=== PATIENT | female | born 1970 | race American Indian/Alaskan Native ===

== ENCOUNTER 2016-07-21 00:55 | Emergency (ER) | payer MEDICAID ==
[2016-07-21] MEDS ORDERED: NACL 0.9% 1000 ML 1,000 ML IV ONE (07:13)
[2016-07-21] MEDS ORDERED: VALIUM IV ONE (07:13)
--- NOTE | 2016-07-21 07:34 | Emergency Department Report ---
HPI - General Chief Complaint: Pain General Time Seen by Provider: 07/21/16 06:58 - HPI HPI: This is a 45-year-old Afro[place] female who presents to the emergency department with the complaint of waking up at 12:30 AM this morning with pain to the hips, neck, back with muscle spasms. At the time the patient also said she was having trouble speaking due to the spasms. Patient says she is feeling much better and everything is resolved except for she continues to have some type of neck spasm and tremor when she is sitting upright. She says she has a history of this in the past. She has a history of cervical stenosis and bulging disks at 3 levels and says this is the result. She did not take anything for symptoms prior to presentation. She says that she has previously seen a neurologist and primary care doctor in [place] and now has moved back to [place]. She sees a Dr cassius encarnacion for primary care. She goes through [facility] and therefore does not currently have any neurologist or neurosurgeon but is being set up for . Patient says she really started a new medication for cholesterol, Lopid, and wonders if this could be the cause. She also has a history of non-insulin dependent diabetes and hyperthyroidism. No recent travel or sick contacts at home. She denies any headache, vision change, numbness or paresthesias, problems with bowel or bladder. ED Past Medical Hx - Past Medical History Previous Medical History?: Yes Hx Hypertension: Yes (diet-controlled) Hx Diabetes: Yes (metformin twice a day 500 mg) Hx Asthma: Yes (albuterol inhaler and Advair twice a day) Additional medical history: CERVICAL STENOSIS AND BULGING DISC: Flexeril and Indocin. HYPERTHYROID: Thyroxine 150 daily. HIGH CHOLESTEROL: Diet-controlled - Surgical History Past Surgical History?: Yes Hx Cholecystectomy: Yes Additional Surgical History: D & C. CYST REMOVED FROM URETHRA - Social History Smoking Status: Never Smoker Substance Use Type: Non Opiate Pain, Prescribed - Medications Home Medications: Home Medications Medication Instructions Recorded Confirmed Last Taken Type Cyclobenzaprine [Flexeril 10mg] 10 mg PO BID #14 tablet 11/10/14 Unknown Rx Diazepam Tab [Valium] 5 mg PO TID PRN #14 tablet 07/21/16 Unknown Rx ED Review of Systems ROS: Stated complaint: BACK PAIN Other details as noted in HPI Constitutional: denies: chills, fever Eyes: denies: eye pain, eye discharge, vision change ENT: denies: ear pain, throat pain Respiratory: denies: cough, shortness of breath, wheezing Cardiovascular: denies: chest pain, palpitations Gastrointestinal: denies: abdominal pain, nausea, diarrhea Genitourinary: denies: urgency, dysuria, discharge Musculoskeletal: back pain, arthralgia, myalgia. denies: joint swelling Skin: denies: rash, lesions Neurological: denies: headache, numbness, paresthesias Physical Exam - Physical Exam Vital Signs: Vital Signs 07/21/16 01:49 Temperature 99.2 F Pulse Rate 109 H Respiratory 18 Rate Blood Pressure 145/82 Blood Pressure 145/82 [Left] O2 Sat by Pulse 100 Oximetry Physical Exam: GENERAL: The patient is well-developed well-nourished. HEENT: Normocephalic. Atraumatic. Extraocular motions are intact. Patient has moist mucous membranes. Pupils equal reactive to light bilaterally. NECK: Supple. Trachea is midline. CHEST/LUNGS: Clear to auscultation. There is no respiratory distress noted. HEART/CARDIOVASCULAR: Regular. There is no tachycardia. There is no gallop rub or murmur. ABDOMEN: Abdomen is soft, nontender. Patient has normal bowel sounds. There is no abdominal distention. SKIN: There is no rash. There is no edema. There is no diaphoresis. NEURO: The patient is awake, alert, and oriented. The patient is cooperative. The patient has no motor or sensory neurologic deficits. The patient has normal speech and gait. Cranial nerves II through XII grossly intact. When the patient sits up she has this intermittent tremor or spasm of the head and neck that appears as if she is doing a slow nod. No pronator drift or dysmetria. MUSCULOSKELETAL: There is no tenderness or deformity. There is no limitation range of motion. There is no evidence of acute injury. Muscle strength 5 out of 5 for upper and lower extremity bilaterally. ED Course Vital Signs 07/21/16 01:49 Temperature 99.2 F Pulse Rate 109 H Respiratory 18 Rate Blood Pressure 145/82 Blood Pressure 145/82 [Left] O2 Sat by Pulse 100 Oximetry ED Medical Decision Making - Lab Data Result diagrams: 07/21/16 07:29 07/21/16 07:29 - Radiology Data Radiology results: report reviewed CT of the head does not show any acute process including no hemorrhage, mass, shift, diffuse edema or skull fracture. - Medical Decision Making 45-year-old female presents with acute spasms and some tremor that began rest after midnight. They already greatly improved prior to the patient getting back to the main emergency department. She was given IV fluid resuscitation and some Valium for muscle relaxation. Labs were checked and there is no signs of infection, electrolyte abnormalities, renal insufficiency, glucose abnormalities and the patient has normal thyroid function. Patient was reevaluated multiple times and says she is feeling much better. The head and neck tremor/spasm is greatly improved and almost resolved. Patient was seen ambulatory in the emergency department and appears stable while doing so. She has good follow-up with primary care. She will be given a referral for a local neurologist and has been encouraged to find a referral for a orthopedic spinal surgeon or neurosurgeon regarding her spinal stenosis. She does not have any numbness or paresthesias, problems with bowel or bladder. She will return immediately with any worsening of her symptoms or any acute distress. - Differential Diagnosis muscle spasms, Parkinson's, CVA, electrolyte abnormalities Critical Care Time: No Critical care attestation.: If time is entered above; I have spent that time in minutes in the direct care of this critically ill patient, excluding procedure time. ED Disposition Clinical Impression: Muscle spasm, Tremor, History of spinal stenosis Disposition: DISCHARGED TO HOME OR SELFCARE Is pt being admited?: No Does the pt Need Aspirin: No Condition: Stable Instructions: Muscle Spasm (ED) Additional Instructions: Please follow-up with your primary care doctor in the next few days without fail. I've also given you a local referral for a neurologist, Dr. Tena. You may need to see a orthopedic spinal physician or a neurosurgeon regarding your history of cervical spinal stenosis. Return to the emergency department with any worsening of your symptoms, slurred speech, vision change, problems with movement, chest pain, or any acute distress. You've been prescribed a medication that is sedating. Therefore this medication cannot be mixed with alcohol, or taken prior to driving, working, or being responsible for children. Prescriptions: Diazepam Tab [Valium] 5 mg PO TID PRN #14 tablet PRN Reason: Spasms Referrals: PRIMARY CARE, [Primary Care Provider] - 3-5 Days MADI TENA MD [Staff Physician] - 3-5 Days Time of Disposition: 09:54
[2016-07-21 08:12] LABS: Anion Gap 18 mmol/L; Blood Urea Nitrogen 12 mg/dL (7-17); Calcium 9.1 mg/dL (8.4-10.2); Carbon Dioxide 23 mmol/L (22-30); Glucose 95 mg/dL (65-100); Potassium 3.9 mmol/L (3.6-5.0); Sodium 139 mmol/L (137-145)
[2016-07-21 08:28] LABS: Basophils % (Auto) 0.8 % (0.0-1.8); Eosinophils % (Auto) 1.6 % (0.0-4.3); Hematocrit 35.9 % (30.3-42.9); Hemoglobin 11.4 gm/dl (10.1-14.3); Mean Corpuscular HGB Conc 32 % (30-34); Mean Corpuscular Volume 81 fl (79-97); Platelet Count 283 K/mm3 (140-440); Red Blood Count 4.41 M/mm3 (3.65-5.03); White Blood Count 8.4 K/mm3 (4.5-11.0)
[2016-07-21 08:31] LABS: Mean Corpuscular Hemoglobin 26 pg (28-32)
--- NOTE | 2016-07-21 09:44 | Cat Scan Report ---
CT scan of head without contrast: History: Spasms, tremors. Findings: Ventricles are normal in size and midline in location. No evidence of acute ischemia or hemorrhage. No extra-axial fluid collection. Normal brainstem and cerebellum. Normal sinuses and mastoid air cells. Impression: No acute intracranial abnormality.
[2016-07-21 09:57] VITALS: BP 130/72
== END 2016-07-21 10:10 | disposition home or self-care (01) ==
LOC: ED 00:55
DX: M62.838 Other muscle spasm (principal); R25.1 Tremor, unspecified; M48.00 Spinal stenosis, site unspecified; I10 Essential (primary) hypertension; E11.9 Type 2 diabetes mellitus without complications; J45.909 Unspecified asthma, uncomplicated; E78.00 Pure hypercholesterolemia, unspecified; E05.90 Thyrotoxicosis, unspecified without thyrotoxic crisis or storm; Z90.49 Acquired absence of other specified parts of digestive tract
CPT/HCPCS: 36415; 70450; 80048; 84443; 84703; 85025; 96361; 96374; 99284; J3360; J7030

== ENCOUNTER 2016-12-06 16:45 | Emergency (ER) | payer MEDICAID ==
[2016-12-06 17:31] VITALS: BP 125/82
[2016-12-06 18:35] LABS: Urine Drugs of Abuse Note Disclamer
[2016-12-06 18:44] LABS: Basophils % (Auto) 1.4 % (0.0-1.8); Eosinophils % (Auto) 2.9 % (0.0-4.3); Hematocrit 33.7 % (30.3-42.9); Hemoglobin 10.7 gm/dl (10.1-14.3); Mean Corpuscular HGB Conc 32 % (30-34); Mean Corpuscular Volume 81 fl (79-97); Platelet Count 288 K/mm3 (140-440); Red Blood Count 4.19 M/mm3 (3.65-5.03); Red Cell Distribution Width 16.5 % (13.2-15.2); White Blood Count 7.4 K/mm3 (4.5-11.0)
[2016-12-06 18:46] LABS: Mean Corpuscular Hemoglobin 26 pg (28-32)
[2016-12-06 18:55] LABS: Bilirubin,Urine NEG (Negative); Blood,Urine LG (Negative); Ketones,Urine NEG (Negative); Leukocyte Esterase,Urine MOD (Negative); Mucus,Urine FEW /HPF; Nitrite,Urine NEG (Negative); Urobilinogen,Urine < 2.0 mg/dL (<2.0)
[2016-12-06 18:56] LABS: RBC,Urine > 182.0 /HPF (0.0-6.0)
[2016-12-06 19:00] LABS: Anion Gap 18 mmol/L; BUN/Creatinine Ratio 21.66; Blood Urea Nitrogen 13 mg/dL (7-17); Calcium 8.8 mg/dL (8.4-10.2); Carbon Dioxide 22 mmol/L (22-30); Chloride 105.8 mmol/L (98-107); Glucose 111 mg/dL (65-100); Potassium 3.7 mmol/L (3.6-5.0); Sodium 142 mmol/L (137-145)
[2016-12-06] MEDS ORDERED: ATIVAN IV ONE (20:42)
--- NOTE | 2016-12-06 20:49 | Emergency Department Report ---
HPI - General Chief Complaint: Anxiety Time Seen by Provider: 12/06/16 20:29 - HPI HPI: Room 16 The patient is a 45-year-old female presenting with a chief complaint of "stress -induced seizure." Family states the patient has a history of "stress-induced seizures." Family states at about 16:00 the patient developed spasms, couldn't walk, her arms and legs stiffened. Family say she has a history of the same since July was diagnosed with "stress-induced seizures." Patient denies being on any medication for the seizures. Patient originally felt expressed that she cannot speak however the patient reportedly told staff upon arrival of the "I need more painful, seizures." And during my interview the patient interjected while I was questioning the patient's daughter and screamed "tell him about what happened today!" The patient reportedly had pseudoseizure activity with EMS and in triage Location: Mental state Duration: [see above] Quality: Anxiety Severity: Moderate Modifying factors: [see above] Context: [see above] Mode of transportation: [not driving] ED Past Medical Hx - Past Medical History Hx Hypertension: Yes (diet-controlled) Hx Diabetes: Yes (metformin twice a day 500 mg) Hx Asthma: Yes (albuterol inhaler and Advair twice a day) Additional medical history: CERVICAL STENOSIS AND BULGING DISC: Flexeril and Indocin. HYPERTHYROID: Thyroxine 150 daily. HIGH CHOLESTEROL: Diet-controlled - Surgical History Hx Cholecystectomy: Yes Additional Surgical History: D & C. CYST REMOVED FROM URETHRA - Family History Family history: no significant - Social History Smoking Status: Never Smoker Substance Use Type: Non Opiate Pain, Prescribed - Medications Home Medications: Home Medications Medication Instructions Recorded Confirmed Last Taken Type Cyclobenzaprine [Flexeril 10mg] 10 mg PO BID #14 tablet 11/10/14 Unknown Rx Diazepam Tab [Valium] 5 mg PO TID PRN #14 tablet 07/21/16 Unknown Rx Sulfamethoxazole/Trimethoprim 1 each PO BID #14 tablet 12/06/16 Unknown Rx [Bactrim DS TAB] hydrOXYzine PAMOATE [Vistaril] 50 mg PO Q6HR PRN #10 capsule 12/06/16 Unknown Rx ED Review of Systems ROS: Stated complaint: SEIZURE Other details as noted in HPI Comment: All other systems reviewed and negative Constitutional: denies: chills, fever Eyes: denies: eye pain, eye discharge, vision change ENT: denies: ear pain, throat pain Respiratory: denies: cough, shortness of breath, wheezing Cardiovascular: denies: chest pain, palpitations Endocrine: no symptoms reported Gastrointestinal: denies: abdominal pain, nausea, diarrhea Genitourinary: denies: urgency, dysuria, discharge Musculoskeletal: myalgia Skin: denies: rash, lesions Psychiatric: anxiety Hematological/Lymphatic: denies: easy bleeding, easy bruising Physical Exam - Physical Exam Vital Signs: Vital Signs 12/06/16 17:26 Temperature 99 F Pulse Rate 80 Respiratory 16 Rate Blood Pressure 125/82 O2 Sat by Pulse 99 Oximetry Physical Exam: GENERAL: The patient is well-developed well-nourished female lying on stretcher not appearing to be in acute distress. [] HEENT: Normocephalic. Atraumatic. Extraocular motions are intact. Patient has moist mucous membranes. NECK: Supple. No meningitic signs are noted. There is no adenopathy noted. CHEST/LUNGS: Clear to auscultation. There is no respiratory distress noted. HEART/CARDIOVASCULAR: Regular. There is no tachycardia. There is no gallop rub or murmur. ABDOMEN: Abdomen is soft, nontender. Patient has normal bowel sounds. There is no abdominal distention. SKIN: There is no rash. There is no edema. There is no diaphoresis. NEURO: The patient is awake and alert. The patient is cooperative. The patient has no focal neurologic deficits. The patient has normal speech (when she chooses to speak). Cranial nerves II through XII grossly intact. Patient able to hold a clipboard with her left hand and write legibly with her right hand. Patient moves all extremities well MUSCULOSKELETAL: There is no evidence of acute injury. ED Course Vital Signs 12/06/16 17:26 Temperature 99 F Pulse Rate 80 Respiratory 16 Rate Blood Pressure 125/82 O2 Sat by Pulse 99 Oximetry - Consultations Consultation #1: 12/06/16 20:44 Attempted to call patient's neurologist Dr. Rodriguez at [phone]- [phone] answering machine and memory was full ED Medical Decision Making - Lab Data Result diagrams: 12/06/16 18:29 12/06/16 18:29 Laboratory Tests 06/23/17 06/23/17 06/23/17 18:25 18:25 18:29 WBC RBC Hgb Hct MCV MCH MCHC RDW Plt Count Lymph % (Auto) [place] % (Auto) Eos % (Auto) Baso % (Auto) Lymph # [place] # Eos # Baso # Seg Neutrophils % Seg Neutrophils # Sodium 142 Potassium 3.7 Chloride 105.8 Carbon Dioxide 22 Anion Gap 18 BUN 13 Creatinine 0.6 L Estimated GFR > 60 BUN/Creatinine Ratio 21.66 Glucose 111 H Calcium 8.8 Urine Color Red Urine Turbidity Clear Urine pH 6.0 Ur Specific [place] 1.009 Urine Protein 30 mg/dl Urine Glucose (UA) Neg Urine Ketones Neg Urine Blood Lg Urine Nitrite Neg Urine Bilirubin Neg Urine Urobilinogen < 2.0 Ur Leukocyte Esterase Mod Urine WBC (Auto) 56.0 H Urine RBC (Auto) > 182.0 U Epithel Cells (Auto) < 1.0 Urine Mucus Few Urine Opiates Screen Presumptive negative Urine Methadone Screen Presumptive negative Ur Barbiturates Screen Presumptive negative Ur Phencyclidine Scrn Presumptive negative Ur Amphetamines Screen Presumptive negative U Benzodiazepines Scrn Presumptive negative Urine Cocaine Screen Presumptive negative U Marijuana (THC) Screen Presumptive negative Drugs of Abuse Note Disclamer Plasma/Serum Alcohol 12/06/16 12/06/16 18:29 18:29 WBC 7.4 RBC 4.19 Hgb 10.7 Hct 33.7 MCV 81 MCH 26 L MCHC 32 RDW 16.5 H Plt Count 288 Lymph % (Auto) 27.8 [place] % (Auto) 6.6 Eos % (Auto) 2.9 Baso % (Auto) 1.4 Lymph # 2.1 [place] # 0.5 Eos # 0.2 Baso # 0.1 Seg Neutrophils % 61.3 Seg Neutrophils # 4.5 Sodium Potassium Chloride Carbon Dioxide Anion Gap BUN Creatinine Estimated GFR BUN/Creatinine Ratio Glucose Calcium Urine Color Urine Turbidity Urine pH Ur Specific [place] Urine Protein Urine Glucose (UA) Urine Ketones Urine Blood Urine Nitrite Urine Bilirubin Urine Urobilinogen Ur Leukocyte Esterase Urine WBC (Auto) Urine RBC (Auto) U Epithel Cells (Auto) Urine Mucus Urine Opiates Screen Urine Methadone Screen Ur Barbiturates Screen Ur Phencyclidine Scrn Ur Amphetamines Screen U Benzodiazepines Scrn Urine Cocaine Screen U Marijuana (THC) Screen Drugs of Abuse Note Plasma/Serum Alcohol < 0.01 - Radiology Data Radiology results: report reviewed (CT head), image reviewed (CT head) CT head (read by radiologist)-no acute abnormalities - Differential Diagnosis anxiety, malingering, electrolyte imbalance Critical care attestation.: If time is entered above; I have spent that time in minutes in the direct care of this critically ill patient, excluding procedure time. ED Disposition Clinical Impression: Anxiety, UTI (urinary tract infection) Disposition: TO HOME OR SELFCARE Is pt being admited?: No Does the pt Need Aspirin: No Condition: Stable Instructions: Anxiety (ED) Additional Instructions: Return to the emergency department immediately should you develop worsening symptoms, fever, inability to tolerate food or liquid or any other concerns. Prescriptions: hydrOXYzine PAMOATE [Vistaril] 50 mg PO Q6HR PRN #10 capsule PRN Reason: Anxiety Sulfamethoxazole/Trimethoprim [Bactrim DS TAB] 1 each PO BID #14 tablet Referrals: PRIMARY CARE,MD [Primary Care Provider] - 3-[address] Rodriguez, your neurologist [Other] - 3-5 Days [facility] [Outside] - [facility] Time of Disposition: 21:41
--- NOTE | 2016-12-06 21:11 | Cat Scan Report ---
FINAL REPORT PROCEDURE: CT HEAD/BRAIN WO CON TECHNIQUE: Computerized tomography of the head was performed without contrast material. HISTORY: history of "seizure" COMPARISON: No prior studies are available for comparison. FINDINGS: Visualized portions of the paranasal sinuses and mastoid air cells are clear. No calvarial fracture is seen. Cerebral ventricles are normal in size. No acute intracranial hemorrhage or mass effect is seen. No CVA is seen. IMPRESSION: No abnormalities are seen.
== END 2016-12-06 21:45 | disposition home or self-care (01) ==
LOC: ED 16:45
DX: F41.9 Anxiety disorder, unspecified (principal); N39.0 Urinary tract infection, site not specified; I10 Essential (primary) hypertension; E11.9 Type 2 diabetes mellitus without complications; J45.909 Unspecified asthma, uncomplicated; E78.00 Pure hypercholesterolemia, unspecified; Z90.49 Acquired absence of other specified parts of digestive tract
CPT/HCPCS: 36415; 70450; 80048; 80307; 81001; 85025; 96374; 99284; G0480; J2060; 80320

== ENCOUNTER 2020-09-24 10:04 | Emergency (ER) | payer MEDICAID ==
[2020-09-24 10:14] VITALS: BP 127/85
--- NOTE | 2020-09-24 11:03 | Event Note ---
ED Screening Note Date of service: 09/24/20 Time: 10:57 ED Screening Note: Pain in left breast with burning and sharp,shooting pain. She reports a lump. here is a bloody and purulent drainage from the left nipple. She had a mammogram last week. She states she was told the mammogram was abnormal and she was referred to a surgeon. This initial assessment/diagnostic orders/clinical plan/treatment(s) is/are subject to change based on patients health status, clinical progression and re-assessment by fellow clinical providers in the ED. Further treatment and workup at subsequent clinical providers discretion. Patient/guardian urged not to elope from the ED as their condition may be serious if not clinically assessed and managed. Initial orders include:
--- NOTE | 2020-09-24 11:08 | Emergency Department Report ---
ED General Adult HPI - General Chief complaint: Skin/Abscess/Foreign Body Stated complaint: BREAST/RIB PAIN Source: patient Mode of arrival: Ambulatory Limitations: No Limitations - History of Present Illness Initial comments: Is a pleasant 49-year-old female who presents to the emergency department for evaluation of left breast pain and discharge from her left nipple that started yesterday. She reports 1 week ago she had a mammogram that was ordered as a routine exam by her doctor and they found an abnormal finding and referred her to a breast surgeon for further work-up. The patient states she was not having any symptoms prior to the mammogram and has not had issues such as this in the past for mammogram. She denies any other associated symptoms. [place] any associated fever, chills, night sweats, headache, dizziness, blurry vision, nausea, vomit, diarrhea, chest pain or shortness of breath, weakness or any other associated symptoms. - Related Data Previous Rx's Medication Instructions Recorded Last Taken Type Cyclobenzaprine [Flexeril 10mg] 10 mg PO BID #14 tablet 11/10/14 Unknown Rx diazePAM TAB [Valium] 5 mg PO TID PRN #14 tablet 07/21/16 Unknown Rx Sulfamethoxazole/Trimethoprim 1 each PO BID #14 tablet 12/06/16 Unknown Rx [Bactrim DS TAB] hydrOXYzine PAMOATE [Vistaril] 50 mg PO Q6HR PRN #10 capsule 12/06/16 Unknown Rx traMADoL [Ultram 50 MG tab] 50 mg PO Q6HR PRN #12 tablet 09/24/20 Unknown Rx Allergies Allergy/AdvReac Type Severity Reaction Status Date / Time aspirin Allergy Swelling Verified 11/10/14 08:01 ibuprofen [From Motrin] Allergy Swelling Verified 11/10/14 08:01 codeine AdvReac INSOMNIA Verified 11/10/14 08:01 AND ITCHING ED Review of Systems ROS: Stated complaint: BREAST/RIB PAIN Other details as noted in HPI Comment: All other systems reviewed and negative Constitutional: denies: chills, fever Eyes: denies: eye pain, eye discharge, vision change ENT: denies: ear pain, throat pain Respiratory: denies: cough, shortness of breath, wheezing Cardiovascular: denies: chest pain, palpitations Endocrine: no symptoms reported Gastrointestinal: denies: abdominal pain, nausea, diarrhea Genitourinary: other. denies: urgency, dysuria, discharge Musculoskeletal: other. denies: back pain, joint swelling Skin: denies: rash, lesions Neurological: denies: headache, weakness, paresthesias Psychiatric: denies: anxiety, depression Hematological/Lymphatic: denies: easy bleeding, easy bruising ED Past Medical Hx - Past Medical History Previous Medical History?: Yes Hx Hypertension: Yes Hx Diabetes: Yes Hx Arthritis: Yes Hx Asthma: Yes (albuterol inhaler and Advair twice a day) Additional medical history: CERVICAL STENOSIS AND BULGING DISC: Flexeril and Indocin. HYPERTHYROID: Thyroxine 150 daily. HIGH CHOLESTEROL: Diet-controlled - Surgical History Past Surgical History?: Yes Hx Cholecystectomy: Yes Additional Surgical History: D & C. CYST REMOVED FROM URETHRA - Social History Smoking Status: Never Smoker Substance Use Type: None - Medications Home Medications: Home Medications Medication Instructions Recorded Confirmed Last Taken Type Cyclobenzaprine [Flexeril 10mg] 10 mg PO BID #14 tablet 11/10/14 Unknown Rx diazePAM TAB [Valium] 5 mg PO TID PRN #14 tablet 07/21/16 Unknown Rx Sulfamethoxazole/Trimethoprim 1 each PO BID #14 tablet 12/06/16 Unknown Rx [Bactrim DS TAB] hydrOXYzine PAMOATE [Vistaril] 50 mg PO Q6HR PRN #10 capsule 12/06/16 Unknown Rx traMADoL [Ultram 50 MG tab] 50 mg PO Q6HR PRN #12 tablet 09/24/20 Unknown Rx ED Physical Exam - General Limitations: No Limitations General appearance: alert, in no apparent distress - Head Head exam: Present: atraumatic, normocephalic - Eye Eye exam: Present: normal appearance, PERRL, EOMI Pupils: Present: normal accommodation - ENT ENT exam: Present: normal exam, normal orophraynx, mucous membranes moist - Neck Neck exam: Present: normal inspection, full ROM. Absent: tenderness, meningismus - Respiratory Respiratory exam: Present: normal lung sounds bilaterally. Absent: respiratory distress, wheezes, rales, rhonchi, chest wall tenderness - Cardiovascular Cardiovascular Exam: Present: regular rate, normal rhythm, normal heart sounds. Absent: systolic murmur, diastolic murmur, rubs, gallop - GI/Abdominal GI/Abdominal exam: Present: soft, normal bowel sounds. Absent: distended, tenderness, guarding, rebound, rigid - Extremities Exam Extremities exam: Present: normal inspection, full ROM. Absent: tenderness - Back Exam Back exam: Present: normal inspection - Neurological Exam Neurological exam: Present: alert, oriented X3 - Psychiatric Psychiatric exam: Present: normal affect, normal mood - Skin Skin exam: Present: warm, dry, intact, normal color. Absent: rash - Other Other exam information: Breast examination chaperoned by JAELYN Ramirez showed no lesions, there is tenderness at the 6 o'clock position. No expressible discharge. No retractions or pue'de orange. No fluctuance or crepitus ED Course Vital Signs 09/24/20 10:11 Temperature 98.8 F Pulse Rate 80 Respiratory 16 Rate Blood Pressure 127/85 O2 Sat by Pulse 99 Oximetry - Reevaluation(s) Reevaluation #1: 09/24/20 11:09 Patient nontoxic in no acute distress. Vital signs are stable. Sirs criteria is negative. I offered to do lab work however the patient politely declined and preferred to follow-up with her doctor. She denied any pain in her chest and stated was just localized to the breast. On exam the exam was relatively normal although I did highly recommend due to her abnormal mammogram and her symptoms today that she follow-up with her breast surgeon for further work-up including biopsy and rule out of breast cancer, abscess or any other acute findings. As far as her pain she is PERC negative and a low risk by Wells criteria for PE. She has no pain in her chest or shortness of breath making my suspicion for atypical ACS unlikely at this time. I did offer her antibiotics due to the possible purulent discharge and she declined saying she would rather follow-up with her doctor. I will treat her pain with anti-inflammatories recommend warm compresses and prompt referral back to the emergency department if her symptoms change or worsen. She verbalized understand the diagnosis, treatment and follow-up instructions and all of her questions were answered. Reevaluation #2: 09/24/20 11:12 Patient changed her mind aside now she does we will do blood work ED Medical Decision Making - Lab Data Result diagrams: 09/24/20 11:23 09/24/20 11:23 Lab Results 09/24/20 09/24/20 Range/Units 11:23 11:23 WBC 10.1 (4.5-11.0) K/mm3 RBC 4.39 (3.65-5.03) M/mm3 Hgb 14.6 H (10.1-14.3) gm/dl Hct 43.0 H (30.3-42.9) % MCV 98 H (79-97) fl MCH 33 H (28-32) pg MCHC 34 (30-34) % RDW 13.2 (13.2-15.2) % Plt Count 249 (140-440) K/mm3 Lymph % (Auto) 12.9 L (13.4-35.0) % Nelson % (Auto) 7.3 (0.0-7.3) % Eos % (Auto) 0.6 (0.0-4.3) % Baso % (Auto) 0.5 (0.0-1.8) % Lymph # (Auto) 1.3 (1.2-5.4) K/mm3 Nelson # (Auto) 0.7 (0.0-0.8) K/mm3 Eos # (Auto) 0.1 (0.0-0.4) K/mm3 Baso # (Auto) 0.1 (0.0-0.1) K/mm3 Seg Neutrophils % 78.7 H (40.0-70.0) % Seg Neutrophils # 8.0 H (1.8-7.7) K/mm3 Sodium 135 L (137-145) mmol/L Potassium 4.1 (3.6-5.0) mmol/L Chloride 100.5 (98-107) mmol/L Carbon Dioxide 25 (22-30) mmol/L Anion Gap 14 mmol/L BUN 9 (7-17) mg/dL Creatinine 0.5 L (0.6-1.2) mg/dL Estimated GFR > 60 ml/min BUN/Creatinine Ratio 18 % Glucose 104 H (65-100) mg/dL Calcium 8.6 (8.4-10.2) mg/dL - Medical Decision Making See above - Differential Diagnosis Breast abscess, breast cancer, contusion, hematoma Critical care attestation.: If time is entered above; I have spent that time in minutes in the direct care of this critically ill patient, excluding procedure time. ED Disposition Clinical Impression: Breast pain, left Disposition: DC-01 TO HOME OR SELFCARE Is pt being admited?: No Condition: Stable Instructions: Breast Tenderness Prescriptions: traMADoL [Ultram 50 MG tab] 50 mg PO Q6HR PRN #12 tablet PRN Reason: Pain Referrals: [facility] MD ALEXA [Primary Care Provider] - 3-5 Days Time of Disposition: 11:11
[2020-09-24 11:42] LABS: Basophils # (Auto) 0.1 K/mm3 (0.0-0.1); Basophils % (Auto) 0.5 % (0.0-1.8); Eosinophils # (Auto) 0.1 K/mm3 (0.0-0.4); Eosinophils % (Auto) 0.6 % (0.0-4.3); Hemoglobin 14.6 gm/dl (10.1-14.3); Lymphocytes # (Auto) 1.3 K/mm3 (1.2-5.4); Lymphocytes % (Auto) 12.9 % (13.4-35.0); Mean Corpuscular HGB Conc 34 % (30-34); Mean Corpuscular Volume 98 fl (79-97); Monocytes # (Auto) 0.7 K/mm3 (0.0-0.8); Monocytes % (Auto) 7.3 % (0.0-7.3); Platelet Count 249 K/mm3 (140-440); Red Blood Count 4.39 M/mm3 (3.65-5.03); Red Cell Distribution Width 13.2 % (13.2-15.2)
[2020-09-24 12:02] LABS: Blood Urea Nitrogen 9 mg/dL (7-17); Calcium 8.6 mg/dL (8.4-10.2); Hemolysis Index 12
[2020-09-24 12:06] LABS: BUN/Creatinine Ratio 18
== END 2020-09-24 12:46 | disposition home or self-care (01) ==
LOC: ED 10:04
DX: N64.4 Mastodynia (principal); I10 Essential (primary) hypertension; E11.9 Type 2 diabetes mellitus without complications; M19.91 Primary osteoarthritis, unspecified site; J45.909 Unspecified asthma, uncomplicated; Z90.49 Acquired absence of other specified parts of digestive tract; Z98.890 Other specified postprocedural states; Z79.899 Other long term (current) drug therapy; Z88.8 Allergy status to other drugs, medicaments and biological substances
CPT/HCPCS: 36415; 80048; 85025

== ENCOUNTER 2020-11-21 10:42 | Outpatient (CLI) | payer MEDICAID ==
--- NOTE | 2020-11-21 13:11 | Ultrasound Report ---
ULTRASOUND-GUIDED CORE NEEDLE BIOPSY Left BREAST 4:00 WITH CLIP PLACEMENT INDICATION: Findings noted in the left breast on outside imaging. COMPARISON: 09/18/2020 outside ultrasound. FINDINGS: The left subareolar and periareolar breast was evaluated prior to biopsy. Located at the left 4:00 mcintosh bareolar location is a superficially located dilated duct which appears to contain either solid compo nents or debris. This would correspond with the finding seen on the outside imaging. Ultrasound guide d core biopsy of this will be performed this same day. Of note, the outside imaging showed additional dilated duct at the 6:00 position, but this was not identified on the current exam. Outside imaging also showed dilated duct within the nipple itself, not amenable to ultrasound-guided biopsy. Informed consent was obtained. The lesion within the left breast at the 4:00 subareolar location was identified with ultrasound. The overlying skin was cleansed with chloro prep and local anesthesia was obtained with a 1% lidocaine solution. Under ultrasound guidance a 14-gauge spring loaded core biops y needle was advanced to the lesion. A total of 4 core samples were obtained. A U-shaped biopsy marke r was placed to linden the site of the biopsy. Specimen samples were placed in formalin and sent to [facility] for analysis. Patient tolerated the procedure well and no immediate complications were identified. A post procedure mammogram demonstrates accurate placement of the biopsy marker. IMPRESSION: Technically successful ultrasound-guided core biopsy of left breast lesion at the 4:00 subareolar loc ation with placement of a U-shaped biopsy marker. An addendum will be added to this report once pathology results are available. NOTE: The patient reports left bloody nipple discharge. If pathology results are found to be benign, a breast MRI would be recommended. Signer Name: Willy Joshi MD Signed: 11/21/2020 1:07 PM Workstation Name: [id number]
--- NOTE | 2020-11-21 13:14 | Mammography Report ---
LEFT DIAGNOSTIC MAMMOGRAM INDICATION: Status post left breast biopsy. COMPARISON: 08/19/2019. FINDINGS: Left breast CC and LM projection mammograms were obtained. These document a U-shaped biopsy marker in the left breast at the 4:00 subareolar location (site of recent ultrasound guided core bio psy). The biopsy marker appears appropriately positioned, although a mammographic correlate was never identified. IMPRESSION: Left breast mammographic images documenting location of a U-shaped biopsy marker at the site of recen t ultrasound-guided core biopsy. BI-RADS Category 4: Suspicious for Malignancy. Signer Name: Willy Joshi MD Signed: 11/21/2020 1:09 PM Workstation Name: [id number]
== END 2020-11-21 10:43 | disposition home or self-care (01) ==
LOC: SPVWC 10:42
PROVIDERS: ATTEND Surgery
DX: N63.23 Unspecified lump in the left breast, lower outer quadrant (principal); R92.2 Inconclusive mammogram; N60.02 Solitary cyst of left breast; N64.89 Other specified disorders of breast; I10 Essential (primary) hypertension; J45.909 Unspecified asthma, uncomplicated; F32.9 Major depressive disorder, single episode, unspecified; Z90.49 Acquired absence of other specified parts of digestive tract; Z91.81 History of falling; Z79.899 Other long term (current) drug therapy; Z88.6 Allergy status to analgesic agent; Z88.5 Allergy status to narcotic agent
CPT/HCPCS: 88305

== ENCOUNTER 2020-12-20 05:57 | Day surgery (SDC) | payer MEDICAID ==
[2020-12-14 13:56] LABS: Hematocrit 44.1 % (30.3-42.9); Mean Corpuscular HGB Conc 34 % (30-34); Mean Corpuscular Volume 100 fl (79-97); Red Blood Count 4.43 M/mm3 (3.65-5.03); Red Cell Distribution Width 13.3 % (13.2-15.2)
[2020-12-14 14:20] LABS: Platelet Count 220 K/mm3 (140-440)
[~2020-12-20 05:57] MED LIST: ceFAZolin/STERILE WATER 2 GM/20 ML SYRINGE IV NR
[2020-12-20] MEDS ORDERED: MIDAZOLAM 2 MG/2 ML INJ IV NR (06:00)
[2020-12-20] MEDS ORDERED: GABAPENTIN 300 MG CAP PO NR (06:00)
[2020-12-20] MEDS ORDERED: ACETAMINOPHEN 500 MG TAB PO SCH (06:00)
[2020-12-20] MEDS ORDERED: ceFAZolin/Water 2 GM/20 ML 2 GM/20 ML SYRINGE IV NR (06:00)
[2020-12-20] MEDS ORDERED: SCOPOLAMINE TRANSDERMAL PATCH 72 HR TD NR (06:00)
[2020-12-20] MEDS ORDERED: LACTATED RINGERS 1,000 ML IV SCH (06:00)
[2020-12-20] MEDS ORDERED: BACTERIOSTATIC SODIUM CHLORIDE 0.9% 30 ML VIAL INFILTRATI ONE (06:37)
--- NOTE | 2020-12-20 07:26 | Anesthesia Consultation ---
Anesthesia Consult and Med Hx Date of service: 12/20/20 - Airway Anesthetic Teeth Evaluation: Good ROM Head & Neck: Adequate Mental/Hyoid Distance: Adequate Mallampati Class: Class II Intubation Access Assessment: Probably Good - Pre-Operative Health Status ASA Pre-Surgery Classification: ASA3 Proposed Anesthetic Plan: General - Pulmonary Hx Smoking: No Hx Asthma: Yes (daily and prn inhalers) Hx Respiratory Symptoms: No Hx Sleep Apnea: No - Cardiovascular System Hx Hypertension: No Hx Heart Attack/AMI: No Hx Percutaneous Transluminal Coronary Angioplasty (PTCA): No - Central Nervous System Hx Seizures: Yes (remote hx seizures 2/2 hypoglycemia) CVA: No Hx Psychiatric Problems: Yes (anxiety/depression) - Gastrointestinal Hx Gastroesophageal Reflux Disease: Yes (controlled) - Endocrine Hx Renal Disease: No Hx Liver Disease: No Hx Non-Insulin Dependent Diabetes: Yes Hx Thyroid Disease: Yes (hx hyperthyroidism s/p radiation treatment) - Other Systems Hx Obesity: No - Additional Comments Anesthesia Medical History Comments: Hx awareness under anesthesia with multiple prior surgeries under [place].
--- NOTE | 2020-12-20 07:27 | Anesthesia Day of Surgery ---
Anesthesia Day of Surgery - Day of Surgery Patient Examined: Yes Patient H&P Reviewed: Yes Patient is NPO: Yes
[2020-12-20] MEDS ORDERED: HYDROmorphone 1 MG/1 ML INJ ONE (07:29)
[2020-12-20] MEDS ORDERED: LIDOCAINE MPF (2%) 20 MG/1 ML VIAL 5 ML ONE (07:29)
[2020-12-20] MEDS ORDERED: BUPIVACAINE/PF (0.25%) 2.5 MG/ML 30 ML VIAL INFILTRATI ONE ×2 (07:30→10:33)
[2020-12-20] MEDS ORDERED: LIDOCAINE (1%) 10 MG/1 ML VIAL 20 ML MDV ONE ×2 (07:30→07:34)
[2020-12-20] MEDS ORDERED: propofoL 200 MG/20 ML VIAL IV ONE (07:30)
[2020-12-20] MEDS ORDERED: ONDANSETRON 4 MG/2 ML INJ IV PRN (08:00)
[2020-12-20] MEDS ORDERED: fentaNYL 100 MCG/2 ML INJ ONE (08:46)
[2020-12-20] MEDS ORDERED: BACITRACIN ZINC OINT 28.4 GM TP ONE (10:22)
[2020-12-20] MEDS ORDERED: PHENYLEPHRINE/NS 1,000 MCG/10 ML SYRINGE (OR USE) IV ONE (10:28)
[2020-12-20] MEDS ORDERED: LIDOCAINE (1%) 10 MG/1 ML VIAL 20 ML MDV INFILTRATI ONE (10:34)
--- NOTE | 2020-12-20 10:55 | Short Stay Summary ---
Short Stay Documentation Date of service: 12/20/20 - History H&P: obtained from office - Allergies and Medications Current Medications: Allergies aspirin Allergy (Verified 11/10/14 08:01) Swelling ibuprofen [From Motrin] Allergy (Verified 11/10/14 08:01) Swelling codeine Adverse Reaction (Verified 11/10/14 08:01) INSOMNIA AND ITCHING morphine Adverse Reaction (Verified 12/20/20 09:01) Itching PT STATES SHE JUST FEELS "TWITCHY" WITH MORPINE prednisone Adverse Reaction (Verified 12/07/20 16:14) Itching Home Medications Medication Instructions Recorded Confirmed Last Taken Type Cyclobenzaprine [Flexeril 10mg] 10 mg PO BID #14 tablet 11/10/14 12/20/20 1 Week Ago Rx ~12/13/20 diazePAM TAB [Valium] 5 mg PO TID PRN #14 tablet 07/21/16 12/20/20 1 Week Ago Rx ~12/13/20 Sulfamethoxazole/Trimethoprim 1 each PO BID #14 tablet 12/06/16 12/20/20 1 Week Ago Rx [Bactrim DS TAB] ~12/13/20 hydrOXYzine PAMOATE [Vistaril] 50 mg PO Q6HR PRN #10 capsule 12/06/16 12/20/20 2 Weeks Ago Rx ~12/06/20 traMADoL [Ultram 50 MG tab] 50 mg PO Q6HR PRN #12 tablet 09/24/20 12/20/20 2 Weeks Ago Rx ~12/06/20 Albuterol Sulfate [Proventil Hfa] 6.7 gm IH DAILY 12/20/20 12/20/20 12/20/20 06:00 History Brimonidine Tartrate [Brimonidine 1 drop OU Q8HR 12/20/20 12/20/20 12/19/20 History Tartrate 0.2%] Latanoprost 0.005% 1 drop OU QHS 12/20/20 12/20/20 12/19/20 History Levocetirizine Dihydrochloride 5 mg PO DAILY 12/20/20 12/20/20 12/19/20 History [Xyzal] Omeprazole 40 mg PO DAILY 12/20/20 12/20/20 2 Weeks Ago History ~12/06/20 traMADoL [Ultram 50 MG tab] 50 mg PO Q6HR PRN #12 tablet 12/20/20 Unknown Rx traZODone [Desyrel] 100 mg PO DAILY 12/20/20 12/20/20 2 Weeks Ago History ~12/06/20 Active Medications Acetaminophen (Acetaminophen 500 Mg Tab) 1,000 mg PO PREOP ODIN Stop: 12/20/20 20:00 Last Admin: 12/20/20 07:25 Dose: 1,000 mg Documented by: Fentanyl (Fentanyl 100 Mcg/2 Ml Inj) 50 mcg IV Q5MIN PRN PRN Reason: Pain , Severe (7-10) Stop: 12/20/20 17:00 Gabapentin (Gabapentin 300 Mg Cap) 300 mg PO PREOP NR Stop: 12/20/20 20:00 Last Admin: 12/20/20 07:25 Dose: 300 mg Documented by: Cefazolin Sodium (Ancef/Sterile Water 2 Gm/20 Ml) 2 gm in 20 mls @ 80 mls/hr IV PREOP NR Stop: 12/20/20 23:59 Lactated Ringer's (Lactated Ringers) 1,000 mls @ 100 mls/hr IV DIRECT ODIN Stop: 12/20/20 23:59 Last Admin: 12/20/20 08:12 Dose: 100 mls/hr Documented by: Midazolam HCl (Midazolam 2 Mg/2 Ml Inj) 2 mg IV PREOP NR Stop: 12/20/20 20:00 Last Admin: 12/20/20 08:12 Dose: 2 mg Documented by: Ondansetron HCl (Ondansetron 4 Mg/2 Ml Inj) 4 mg IV ONCE PRN PRN Reason: Nausea And Vomiting Stop: 12/20/20 15:00 Scopolamine (Scopolamine Transdermal Patch 72 Hr) 1 each TD PREOP NR Stop: 12/20/20 21:00 Last Admin: 12/20/20 08:12 Dose: 1 each Documented by: - Brief post op/procedure progress note Date of procedure: 12/20/20 Pre-op diagnosis: Left bloody nipple discharge Post-op diagnosis: same Procedure: Left nipple terminal duct excisional biopsy with needle localization breast mass excisional biopsy Anesthesia: GETA Findings: Left wire and clip present adjacent to bleeding terminal duct Surgeon: ILANA VELASCO Estimated blood loss: other (50 cc) Pathology: list Specimen disposition: to lab Condition: stable - Disposition Condition at discharge: Good Disposition: DC-01 TO HOME OR SELFCARE Short Stay Discharge Plan Activity: other (no heavy lifting) Diet: regular Wound: keep clean and dry (wear breast binder; may shower in 48 hours; no baths, pools or lakes; apply bacitracin twice daily to incision) Follow up with: ILANA VELASCO MD [Staff Physician] - 7 Days Prescriptions: traMADoL [Ultram 50 MG tab] 50 mg PO Q6HR PRN #12 tablet PRN Reason: Pain
[2020-12-20] MEDS: fentaNYL 100 MCG/2 ML INJ IV PRN ×2 (11:10→11:45)
--- NOTE | 2020-12-20 11:13 | Operative Report ---
Operative Report Operative Report: Operative Report: Date of procedure: December 20, 2020 Pre-operative diagnosis: Spontaneous left bloody nipple discharge and left breast mass of the lower outer quadrant Post-operative diagnosis: Same Procedure name(s): Left nipple terminal duct excisional biopsy and left breast mass needle localization excisional biopsy of the lower outer quadrant Surgeon: Chelle Anguiano M.D. Senior Telecommunications Technician: Tiffany Melo M.D. Anesthesia: Gen. Findings: Bleeding from left nipple noted around the 5 o'clock position was appropriately identified and dissected free with clip from prior biopsy adjacent and area removed in its entirety and sent to pathology Complications: None Drains: None Estimated blood loss: 50 cc Disposition: PACU in good condition Indications for operative procedure: This is a 50 year old lady with left nipple spontaneous bloody nipple discharge. Recent left breast ultrasound findings at the 4 o'clock position of the subareolar a 4 x 2 mm nodule located within a duct with recommendation for biopsy; nodule thought to represent an intraductal papilloma. Patient underwent ultrasound-guided core biopsy by radiologist with findings of benign cyst wall with sclerosis and negative for atypia or malignancy. Recommendations were to proceed with a left nipple terminal duct excisional biopsy given spontaneous left bloody nipple discharge as well as left needle localization excisional biopsy of prior 4 mm mass that was recently biopsied given area most likely adjacent to bleeding duct of concern. Recommendations were to proceed with surgery to rule out malignancy. Patient wished to proceed with the above procedure. Procedure in detail: Radiology placed wire localization at recent biopsy clip. The patient was taken to the operating room. Gen. anesthesia was administered. The left breast was prepped and draped in the normal side operative fashion. T imeout was performed. The bleeding duct from the left nipple was identified around the 5/6 o'clock position. Lacrimal probe was inserted inside the bleeding duct. The wire was identified as well with ultrasound used with wire noted to adjacent to the area of lacrimal probe insertion. A 6:00 periareolar incision was made with a 15 blade knife with dissection taken down to the subcutaneous tissues. Attention was then taken towards the wire with the medial flap raised with removal of the wire from the skin. The wire was then followed laterally. Then began with dissection of the tissues posterior to the nipple taken down posteriorly to 3 cm. Upon dissection the duct of concern was noted to be adjacent to the recent biopsied area with wire and clip present. The duct of concern was identified with the lacrimal probe appropriately inserted within the bleeding duct and appropriately dissected free to also include the area of recent biopsy with wirea and clip present. Both areas were dissected free with adequate appearing margins. The terminal duct was appropriately marked using a 3-0 Vicryl stitch. The terminal duct with its surrounding tissues were removed with the aid of Bovie cautery and sent to pathology. Radiograph specimen with clip and wire present. Area of dissection was noted to be vascular. Hemostasis was obtained with the aid of Bovie cautery. The breast cavity tissues were anesthetized with 1% lidocaine and quarter percent Marcaine. The subcutaneous tissues were approximated and closed using interrupted 3-0 Vicryl and skin brought together and closed using a running 4-0 Monocryl followed by skin affix. She tolerated surgery very well and was awakened from anesthesia without any complications and transported to PACU in good condition.
[2020-12-20 12:08] VITALS: BP 115/78
--- NOTE | 2020-12-20 12:31 | Mammography Report ---
MAMMOGRAPHY GUIDED WIRE LOCALIZATION OF THE LEFT BREAST LEFT BREAST SPECIMEN RADIOGRAPH, 12/20/2020 INDICATION: Localization of left breast target lesion: Papilloma. COMPARISON: 11/21/2020 diagnostic mammogram TECHNIQUE / FINDINGS: MAMMOGRAPHY GUIDED LOCALIZATION: Preliminary mammography of the breast demonstrated no significant in terval change compared to prior imaging. The anticipated needle entry site was marked, prepped and d raped in the usual sterile fashion. A timeout was performed confirming the patients name, date of th and the procedure to be performed. The skin was anesthetized with 1% lidocaine. A 20 gauge localiz ation needle was inserted through the left breast lesion containing a U clip in the retroareolar mitra on. A localization wire was then deployed through the needle, and the needle was removed. Appropriat e positioning of the wire was confirmed. The patient tolerated the procedure well without immediate complication. The wire was secured to the skin with a sterile dressing. SPECIMEN RADIOGRAPH: The previously localized target lesion is present in its entirety in the submitt ed specimen. The localization wire is present. IMPRESSION: 1. Technically successful mammography guided breast wire localization. 2. Radiographic evidence of satisfactory excision of the target lesion. Signer Name: Vinny Escobar Jr, MD Signed: 12/20/2020 12:26 PM Workstation Name: [id number]
--- NOTE | 2020-12-20 16:42 | Post Anesthesia Evaluation ---
- Post Anesthesia Evaluation Patient Participated: Yes Airway Patent: Yes Stable Respiratory Function: Yes Nausea/Vomiting: No Temp > 96.8F: Yes Pain Manageable: Yes Adequeate Hydration: Yes Anesthesia Complications: No
== END 2020-12-20 12:40 | disposition home or self-care (01) ==
LOC: OR 05:57
PROVIDERS: ATTEND Surgery
DX: N64.52 Nipple discharge (principal); N63.23 Unspecified lump in the left breast, lower outer quadrant; Z20.822 Contact with and (suspected) exposure to COVID-19; H40.9 Unspecified glaucoma; E78.00 Pure hypercholesterolemia, unspecified; J45.909 Unspecified asthma, uncomplicated; K21.9 Gastro-esophageal reflux disease without esophagitis; E11.9 Type 2 diabetes mellitus without complications; M06.9 Rheumatoid arthritis, unspecified; F32.9 Major depressive disorder, single episode, unspecified; F41.9 Anxiety disorder, unspecified; Z91.81 History of falling; Z88.5 Allergy status to narcotic agent; Z88.6 Allergy status to analgesic agent; Z88.8 Allergy status to other drugs, medicaments and biological substances; Z79.899 Other long term (current) drug therapy; Z98.41 Cataract extraction status, right eye; Z98.42 Cataract extraction status, left eye; Z90.49 Acquired absence of other specified parts of digestive tract; Z98.890 Other specified postprocedural states
CPT/HCPCS: 19120; 19125; 19281; 36415; 76098; 82962; 84703; 85027; 88307; A4648; J0690; J2250; J2370; J2405; J2704; J3010; J7120; U0003; J1170